=== PATIENT | female | born 1995 | race Two or more races ===

== ENCOUNTER → 2025-06-16 | Outpatient (CLI) | payer MEDICAID, SELFPAY ==
--- NOTE | 2025-06-16 07:53 | XR_ITS ---
Examination: Ultrasound soft tissue neck TECHNIQUE: Grayscale sonographic images soft tissue neck Date and time: 04/16/2025 0757 hours INDICATIONS: Left upper 3 weeks FINDINGS: Multiple lymph nodes at the area concern in the soft tissue posterior upper left neck, the largest 12 x 15 mm IMPRESSION: Multiple cervical lymph nodes, consider correlation with CT soft tissue neck post intravenous contrast follow-up
== END | disposition home or self-care (01) ==
PROVIDERS: Referring Provider Physician Assistant; Visit Provider Physician Assistant
DX: E04.9 Nontoxic goiter, unspecified (principal)
CPT/HCPCS: 76536